=== PATIENT | female | born 1930 | race Caucasian/White ===

== ENCOUNTER 2020-05-24 14:30 | Inpatient (IN) | payer MEDICARE, OTHER ==
[~2020-05-24] VITALS: Ht 152.4 cm; Wt 59.0 kg
[2020-05-24] MEDS ORDERED: LIDOCAINE PATCH 5% TD (14:50)
[2020-05-24] MEDS ORDERED: APIX2.5T PO (14:50)
[2020-05-24] MEDS ORDERED: EZET10TA15 PO (14:50)
[2020-05-24] MEDS ORDERED: CYCL30DR OP (14:50)
[2020-05-24] MEDS ORDERED: DEXL60CA3 PO (14:50)
[2020-05-24] MEDS ORDERED: DIGO125T PO (14:50)
[2020-05-24] MEDS ORDERED: CYAN-51 PO (14:50)
[2020-05-24] MEDS ORDERED: ROSU20TA2 PO (14:50)
[2020-05-24] MEDS ORDERED: AMLO5TAB9 PO (14:50)
[2020-05-24] MEDS ORDERED: ALEN70TA6 PO (14:50)
[2020-05-24] MEDS ORDERED: LISI10TA5 PO (14:50)
[2020-05-24] MEDS ORDERED: ERGO500040 PO (14:50)
[2020-05-24] MEDS ORDERED: CELE200C PO (14:50)
[2020-05-24] MEDS ORDERED: METO-357 PO (14:50)
[2020-05-24] MEDS ORDERED: ONDANSETRON 4 MG/2 ML VIAL IV ONE (15:00)
[2020-05-24] MEDS ORDERED: IV NS 1000 ML 1,000 ML IV ONE (15:00)
[2020-05-24] MEDS ORDERED: MORPHINE SULFATE 2 MG/1 ML DISP.SYRIN IV ONE (15:00)
[2020-05-24] MEDS ORDERED: MORPHINE SULFATE 2 MG/1 ML DISP.SYRIN ONE (15:13)
[2020-05-24] MEDS ORDERED: ONDANSETRON 4 MG/2 ML VIAL ONE (15:14)
[2020-05-24] MEDS ORDERED: DILTIAZEM HCL 25 MG IV IV ONE (15:30)
[2020-05-24 15:42] LABS: BASOPHILS # (AUTO) 0.1 K/uL (0.0-8.0); BASOPHILS % (AUTO) 0.9 % (0.0-2.0); EOSINOPHILS % (AUTO) 0.2 % (0.0-7.0); HEMATOCRIT 33.9 % (31.2-41.9); HEMOGLOBIN 11.4 g/dL (10.9-14.3); LYMPHOCYTES # (AUTO) 1.2 K/uL (20.0-40.0); LYMPHOCYTES % (AUTO) 12.7 % (20.5-51.5); MEAN CORPUSCULAR HEMOGLOBIN 29.4 uug (24.7-32.8); MEAN CORPUSCULAR HGB CONC 34 g/dL (32.3-35.6); MEAN CORPUSCULAR VOLUME 87.2 fL (75.5-95.3); MONOCYTES % (AUTO) 10.4 % (0.0-11.0); NEUTROPHILS % (AUTO) 75.8 % (38.5-71.5); PLATELET COUNT (AUTO) 163 K/uL (179-408); RED BLOOD CELL COUNT(AUTO) 3.89 MIL/uL (3.63-4.92); WHITE BLOOD COUNT (AUTO) 9.2 K/uL (3.8-11.8)
[2020-05-24 15:47] LABS: CREATININE 1.1 mg/dL (0.6-1.3); POTASSIUM 4.1 mmol/L (3.5-5.1)
[2020-05-24 15:52] LABS: BILIRUBIN,DIRECT 0.4 mg/dL (0.0-0.2); BILIRUBIN,TOTAL 0.7 mg/dL (0.2-1.0); TOTAL PROTEIN, SERUM 7.5 g/dL (6.4-8.2)
[2020-05-24 16:04] LABS: THYROID STIMULATING HORMONE 1.259 mIU/mL (0.358-3.740)
[2020-05-24] MEDS ORDERED: DIGOXIN 500 MCG/2 ML AMP IV ONE (16:45)
[2020-05-24] MEDS ORDERED: DIGOXIN 500 MCG/2 ML AMP ONE (16:51)
--- NOTE | 2020-05-24 18:37 | NUR ---
PT WAS EVALUATED BY DR STRANGE. PT WAS TRNASFERED TO TELEMETRY ROOM #[id number]. REPORT WAS GIVEN TO GAS APPLIANCE REPAIRER MANDY.
[2020-05-24 18:40] VITALS: BP 125/51
[2020-05-24] MEDS ORDERED: TEMAZEPAM 15 MG CAPSULE PO PRN (18:45)
[2020-05-24] MEDS ORDERED: ACETAMINOPHEN 325 MG TABLET PO PRN (18:45)
[2020-05-24] MEDS ORDERED: Z GUARD REMEDY PASTE 57 GM TUBE TOP PRN (18:45)
[2020-05-24] MEDS ORDERED: ENOXAPARIN SODIUM 40 MG/0.4 ML DISP.SYRIN SQ SCH (18:45)
--- NOTE | 2020-05-24 18:49 | NUR ---
89 year old female received from er via rney for abdominal pain ,pt is axox3 call light with in reach
[2020-05-24] MEDS: MORPHINE SULFATE 2 MG/1 ML DISP.SYRIN IV PRN (20:05)
[2020-05-24] MEDS: ONDANSETRON 4 MG/2 ML VIAL IV PRN (20:06)
--- NOTE | 2020-05-24 20:15 | NUR ---
RECEIVED PATIENT AWAKE IN BED. A/O X3. SURINAMESE SPEAKING BUT ABLE TO MAKE NEEDS KNOWN. C/O PAIN IN ABDOMEN AND C/O NAUSEA. PATIENT GIVEN MORPHINE 2MG IVP AND ZOFRAN 4MF IVP PER CONSERVATION TECHNICIAN. VS WNL. NO RESP. DISTRESS NOTED. H/L INTACT AND PATENT WITH IVF INFUSING WELL TO RIGHT AC #20 GAUGE. BED ALARM ON. CALL LIGHT IN REACH. WILL CONTINUE TO MONITOR AND ASSESS.
[2020-05-24] MEDS: ATORVASTATIN 40 MG TABLET PO SCH (20:19)
[2020-05-24] MEDS: APIXABAN 5 MG TABLET PO SCH (20:22)
[2020-05-24 20:54] VITALS: BP 93/37
--- NOTE | 2020-05-24 21:30 | NUR ---
PATIENT ASLEEP. NO S/S OF PAIN OR DISCOMFORT. BED ALARM ON. ON TELE SR. CALL LIGHT IN REACH. ALL NEEDS ATTENDED.
--- NOTE | 2020-05-24 23:00 | NUR ---
REPORT GIVEN TO RN FOR ASSIGNMENT CHANGE. ALL NEEDS ATTENDED.
--- NOTE | 2020-05-24 23:00 | NUR ---
SBAR report received from JOSE ELIAS Plunkett for continuity of care.
--- NOTE | 2020-05-24 23:50 | NUR ---
Pt A/O x4. SLOVENIAN SPEAKING, but able to make needs known. Pt denied any pain or discomfort at this time. Pt was asleep upon assessment, but easily aroused. On RA. No SOB or respiratory distress noted or reported. NS infusing @ 75 ml/h. NO infiltration noted at site. Bed alarm on. Call light and belongings within reach. All safety precautions in place. Pt care and monitoring continued.
[2020-05-25] VITALS: BP 111/50
[2020-05-25 04:47] VITALS: BP 115/58
[2020-05-25] MEDS: MAGNESIUM HYDROXIDE 30 ML LIQUID UDC PO PRN (05:01)
--- NOTE | 2020-05-25 05:01 | NUR ---
Pt c/o constipation and moaning. Pt denied any pain at this time, but requests medication for constipation relief. MOM administered per MD PRN order. Please see eMAR. Pt now sitting at edge of bed. All safety precautions in place. Monitoring continued.
--- NOTE | 2020-05-25 06:26 | NUR ---
NO adverse events during shift. Pt still without BM. No distress noted or reported. Pt denied any pain at this time. Pt status unchanged. Pt safety maintained during shift.
[2020-05-25] MEDS: PANTOPRAZOLE SODIUM 40 MG TABLET.DR PO SCH (06:37)
[2020-05-25] MEDS ORDERED: PANTOPRAZOLE SODIUM 40 MG TABLET.DR PO SCH (07:00)
[2020-05-25 07:16] LABS: BASOPHILS % (AUTO) 0.6 % (0.0-2.0); EOSINOPHILS # (AUTO) 0.1 K/uL (0.0-0.7); EOSINOPHILS % (AUTO) 1.8 % (0.0-7.0); HEMATOCRIT 27.9 % (31.2-41.9); HEMOGLOBIN 9.4 g/dL (10.9-14.3); LYMPHOCYTES # (AUTO) 1.1 K/uL (20.0-40.0); LYMPHOCYTES % (AUTO) 17.1 % (20.5-51.5); MEAN CORPUSCULAR HEMOGLOBIN 29.8 uug (24.7-32.8); MEAN CORPUSCULAR HGB CONC 34 g/dL (32.3-35.6); MEAN CORPUSCULAR VOLUME 88.1 fL (75.5-95.3); MONOCYTES # (AUTO) 0.8 K/uL (2.0-10.0); MONOCYTES % (AUTO) 12.8 % (0.0-11.0); NEUTROPHILS # (AUTO) 4.4 K/uL (1.8-8.9); NEUTROPHILS % (AUTO) 67.7 % (38.5-71.5); PLATELET COUNT (AUTO) 134 K/uL (179-408); RED BLOOD CELL COUNT(AUTO) 3.17 MIL/uL (3.63-4.92); WHITE BLOOD COUNT (AUTO) 6.4 K/uL (3.8-11.8)
[2020-05-25 07:34] LABS: THYROID STIMULATING HORMONE 1.363 mIU/mL (0.358-3.740)
[2020-05-25 07:45] LABS: MAGNESIUM 2.2 mg/dL (1.8-2.4)
--- NOTE | 2020-05-25 08:00 | NUR ---
received awake alert speaks South African, having breakfast at this time, call light within reach
[2020-05-25] MEDS ORDERED: BISACODYL 5 MG TABLET.DR PO ONE (08:45)
[2020-05-25] MEDS ORDERED: AMLODIPINE 5 MG TABLET PO SCH (09:00)
[2020-05-25] MEDS ORDERED: LISINOPRIL 10 MG TABLET PO SCH (09:00)
[2020-05-25] MEDS ORDERED: METOPROLOL SUCCINATE XL 50 MG TAB.SR.24H PO SCH (09:00)
[2020-05-25] MEDS ORDERED: POLYVINYL ALCOHOL OPHT DROPS 15 ML BOTTLE OP SCH (09:00)
[2020-05-25] MEDS: CYANOCOBALAMIN 100 MCG TABLET PO SCH (09:24)
[2020-05-25] MEDS: EZETIMIBE 10 MG TABLET PO SCH (09:25)
[2020-05-25] MEDS: CELECOXIB 200 MG CAPSULE PO SCH (09:25)
--- NOTE | 2020-05-25 09:30 | NUR ---
c/o of nausea after breakfast, medicated with Zofran 4mg iv as ordered prn, informed NO Kamini that pt had a bowel movement and dulcolax 2 tabs not given, spoke to son and daughter and explained plan of care and updated on pts' condition- also wanted to talk to OFFICE ENGINEER- informed Suni Suárez
[2020-05-25] MEDS: ONDANSETRON 4 MG/2 ML VIAL IV PRN ×2 (09:36→16:56)
[2020-05-25] MEDS: APIXABAN 5 MG TABLET PO SCH (09:59)
[2020-05-25] MEDS ORDERED: ERGOCALCIFEROL 50,000 UNIT CAPSULE PO SCH (10:30)
--- NOTE | 2020-05-25 10:50 | NUR ---
states nausea subsided, sitting at the edge of bed, seen by Dr Cortes
--- NOTE | 2020-05-25 11:00 | NUR ---
2d echo done at bedside
[2020-05-25] MEDS: POLYVINYL ALCOHOL OPHT DROPS 15 ML BOTTLE EACHEYE SCH ×2 (11:01→16:57)
[2020-05-25] MEDS: COLCHICINE 0.6 MG TABLET PO SCH ×2 (11:07→16:56)
[2020-05-25 11:08] LABS: CREATININE 1.2 mg/dL (0.6-1.3); POTASSIUM 4.2 mmol/L (3.5-5.1)
[2020-05-25] MEDS: LIDOCAINE 5% PATCH TD SCH (11:08)
[2020-05-25] MEDS ORDERED: FUROSEMIDE 20 MG/2 ML VIAL IV ONE (11:30)
[2020-05-25] MEDS: DIGOXIN 125 MCG TABLET PO SCH (12:46)
[2020-05-25 12:53] VITALS: BP 98/43
[2020-05-25 16:17] VITALS: BP 99/38
--- NOTE | 2020-05-25 16:30 | NUR ---
seen by Dr Ponce with order- for CT Abd with and without contrast- kept npo for now, spoke to Lindy (daughter ) and gave consent with so with pt,
--- NOTE | 2020-05-25 17:58 | NUR ---
resting in bed, nausea subsided, no distress noted, all needs attended and met, call light within reach
--- NOTE | 2020-05-25 19:30 | NUR ---
Received patient lying in bed calm and alert. Pt is Kiswahili speaking with some Monegasque. No s/s of acute distress notes at this time. Right AC patent and intact. Pt denies SOB and pain at this time. Bed locked and low, safety measures in place. Will continue to monitor.
[2020-05-25 20:18] VITALS: BP 112/54
[2020-05-25] MEDS ORDERED: IV NORMAL SALINE 250 ML IV ONE (21:00)
[2020-05-25] MEDS ORDERED: IOHEXOL 300MG/ML 100 ML INFUS..BTL ONE (21:00)
[2020-05-25] MEDS ORDERED: SWABABLE VALVE TRANSFER SET EA MC ONE (21:00)
--- NOTE | 2020-05-25 21:02 | NUR ---
Pt off unit for CT Addendum: 05/25/20 at 2139 by MANDO CALIX RN Pt return from CT. No s/s of acute distress. will continue to monitor
[2020-05-25] MEDS: ATORVASTATIN 40 MG TABLET PO SCH (21:48)
[2020-05-26 00:44] VITALS: BP 118/49
[2020-05-26] MEDS: ONDANSETRON 4 MG/2 ML VIAL IV PRN (02:09)
[2020-05-26] MEDS: MORPHINE SULFATE 2 MG/1 ML DISP.SYRIN IV PRN (02:09)
[2020-05-26 05:29] VITALS: BP 95/47
[2020-05-26] MEDS: PANTOPRAZOLE SODIUM 40 MG TABLET.DR PO SCH (06:18)
[2020-05-26 06:45] LABS: BASOPHILS % (AUTO) 0.8 % (0.0-2.0); EOSINOPHILS # (AUTO) 0.1 K/uL (0.0-0.7); EOSINOPHILS % (AUTO) 2.2 % (0.0-7.0); HEMATOCRIT 28.3 % (31.2-41.9); HEMOGLOBIN 9.6 g/dL (10.9-14.3); LYMPHOCYTES # (AUTO) 1.1 K/uL (20.0-40.0); LYMPHOCYTES % (AUTO) 19.9 % (20.5-51.5); MEAN CORPUSCULAR HEMOGLOBIN 29.7 uug (24.7-32.8); MEAN CORPUSCULAR HGB CONC 34 g/dL (32.3-35.6); MEAN CORPUSCULAR VOLUME 87.4 fL (75.5-95.3); MONOCYTES # (AUTO) 0.5 K/uL (2.0-10.0); MONOCYTES % (AUTO) 9.8 % (0.0-11.0); NEUTROPHILS # (AUTO) 3.7 K/uL (1.8-8.9); NEUTROPHILS % (AUTO) 67.3 % (38.5-71.5); PLATELET COUNT (AUTO) 159 K/uL (179-408); RED BLOOD CELL COUNT(AUTO) 3.24 MIL/uL (3.63-4.92); WHITE BLOOD COUNT (AUTO) 5.5 K/uL (3.8-11.8)
--- NOTE | 2020-05-26 06:58 | NUR ---
Pt resting in bed. No complaints of N/V. No s/s of acute distress. Patient slept well through the night. Safety measures in place and will endorse to oncoming nurse.
[2020-05-26 07:00] LABS: CREATININE 1.3 mg/dL (0.6-1.3); POTASSIUM 4.2 mmol/L (3.5-5.1)
--- NOTE | 2020-05-26 07:30 | NUR ---
Received patient laying in bed. No sign of distress noted at this time. Patient denies any pain and complained that has felt sleepy and sedated for the last two days. She request not to receive any medication that with cause her to be drowsy or sleepy. IV on the right AC 18 gauge heplock. Safety precautions are in place with call light and belonging within reach. Will continue to monitor.
[2020-05-26] MEDS ORDERED: FUROSEMIDE 20 MG/2 ML VIAL IV ONE ×2 (08:45→17:00)
[2020-05-26] MEDS: METOPROLOL SUCCINATE XL 25 MG TAB.SR.24H PO SCH (09:00)
[2020-05-26] MEDS ORDERED: METOPROLOL SUCCINATE XL 50 MG TAB.SR.24H PO SCH (09:00)
[2020-05-26] MEDS: POLYVINYL ALCOHOL OPHT DROPS 15 ML BOTTLE EACHEYE SCH ×2 (09:38→17:24)
[2020-05-26] MEDS: EZETIMIBE 10 MG TABLET PO SCH (09:41)
[2020-05-26] MEDS: COLCHICINE 0.6 MG TABLET PO SCH (09:41)
[2020-05-26] MEDS: CELECOXIB 200 MG CAPSULE PO SCH (09:41)
[2020-05-26] MEDS: CYANOCOBALAMIN 100 MCG TABLET PO SCH (09:41)
[2020-05-26] MEDS: LIDOCAINE 5% PATCH TD SCH (09:42)
[2020-05-26 11:08] VITALS: BP 106/39
[2020-05-26] MEDS: DIGOXIN 125 MCG TABLET PO SCH (13:36)
--- NOTE | 2020-05-26 13:47 | NUR ---
Took patient to restroom and she complained of dizziness, took BP 110/43 with a heart rate of 75. Will continue to monitor.
[2020-05-26 15:10] VITALS: BP 129/43
--- NOTE | 2020-05-26 18:13 | NUR ---
Got driver medic Denisse through the driver medic phone to translate in Icelandic for the informed consent for the EGD and the laparoscopic cholecystectomy that is to be done on Wednesday. Forms are signed and in the patients chart. Will endorse this to oncoming nurse
--- NOTE | 2020-05-26 18:58 | NUR ---
Will also endorse to the oncoming nurse to keep patient NPO after midnight.
--- NOTE | 2020-05-26 19:30 | NUR ---
RECEIVED PT AWAKE, ALERT AND ORIENTEDX3. PT IN NO ACUTE DISTRESS. IV INTACT. SAFETY AND COMFORT PROVIDED. WILL CONTINUE TO MONITOR.
[2020-05-26] MEDS: ATORVASTATIN 40 MG TABLET PO SCH (20:16)
[2020-05-26 21:01] VITALS: BP 126/48
[2020-05-27] VITALS (12 sets, daily range): BP systolic 97–153; BP diastolic 46–83
--- NOTE | 2020-05-27 00:37 | NUR ---
PT ASSISTED TO THE RESTROOM AND HEART RATE STARTED TO INCREASE. PT STATING SHE'S IN PAIN.
[2020-05-27] MEDS: MORPHINE SULFATE 2 MG/1 ML DISP.SYRIN IV PRN ×2 (00:38→20:05)
--- NOTE | 2020-05-27 00:38 | NUR ---
MORPHINE PRN GIVEN FOR PAIN. WILL CONTINUE TO MONITOR.
--- NOTE | 2020-05-27 01:21 | NUR ---
PT SUSTAINING INTO AFIB AND DOESN'T CONVERT TO SR. PT BLOOD PRESSURE WITHIN NORMAL LIMIT. WILL CONTINUE TO MONITOR.
--- NOTE | 2020-05-27 01:22 | NUR ---
NOTIFY NATIONAL COVERAGE SPECIALIST DR MEDICAL RESEARCH ASSOCIATE FOR PT WENT INTO RAPID AFIB. ORDERED CARDIZEM 20 MG IV PUSH THEN A DRIP. WILL CONTINUE TO MONITOR.
--- NOTE | 2020-05-27 01:23 | NUR ---
PT TRANSFERRED TO TELE-TD.
[2020-05-27] MEDS ORDERED: DILTIAZEM HCL IV 125 MG in IV NORMAL SALINE 100 ML IV SCH (01:30)
[2020-05-27] MEDS ORDERED: DILTIAZEM HCL 25 MG IV IV ONE (01:30)
--- NOTE | 2020-05-27 01:42 | NUR ---
CARDIZEM 20MG PUSH BOLUS GIVEN. HEART RATE 150. BLOOD PRESSURE 113/61. CALLED SUPPLIER QUALITY THAT I'M GOING TO START PUSHING THE CARDIZEM.
[2020-05-27] MEDS ORDERED: DILTIAZEM HCL 50 MG IV ONE (01:46)
[2020-05-27] MEDS ORDERED: DILTIAZEM HCL 25 MG IV ONE (01:49)
--- NOTE | 2020-05-27 01:49 | NUR ---
AFTER CARDIZEM PUSH BOLUS PT BLOOD PRESSURE WAS 118/49 AND HEART RATE 122. SAFETY AND COMFORT PROVIDED. WILL CONTINUE TO MONITOR.
--- NOTE | 2020-05-27 03:59 | NUR ---
AT 0355H PT CONVERTED BACK TO SINUS RHYTHM. HEART RATE 67. WILL CONTINUE TO MONITOR.
--- NOTE | 2020-05-27 05:08 | NUR ---
CALLED DR. NORBERTO YEPEZ TO NOTIFY REGARDING PT WENT INTO RAPID AFIB AND CONVERTED BACK INTO SR. PT WAS GIVEN CARDIZEM BOLUS AND PT IS ON A DRIP RIGHT NOW. DR. THORNTON ORDERED TO KEEP PT ON NPO. HE WILL CALL THE RELIABILITY MANAGER FOR FURTHER CONSULT.
[2020-05-27 05:39] LABS: *BILIRUBIN,URIN NEGATIVE (NEGATIVE); *COLOR,URINE YELLOW (YELLOW); *KETONES,URINE NEGATIVE (NEGATIVE); *UROBILINOGEN,URINE 0.2 E.U./dl (NORMAL); LEUKOCYTE ESTERASE ,URINE NEGATIVE (NEGATIVE); NITRITE, URINE NEGATIVE (NEGATIVE); UGLUCOSE NEGATIVE (NEGATIVE)
[2020-05-27 05:40] LABS: *BLOOD, URINE TRACE (NEGATIVE); *CLARITY,URINE HAZY (CLEAR)
[2020-05-27 05:46] LABS: BACTERIA,URINE FEW /HPF (NONE SEEN); SQUAMOUS EPITHELIAL CELL,UR FEW /HPF (NONE SEEN)
[2020-05-27 05:47] LABS: MUCUS,URINE FEW /LPF (0-FEW)
[2020-05-27] MEDS: PANTOPRAZOLE SODIUM 40 MG TABLET.DR PO SCH (06:08)
--- NOTE | 2020-05-27 06:38 | NUR ---
HELD CARDIZEM DRIP AT 0517H FOR SUSTAINING HEART RATE 66. PT IN SINUS RHYTHM. . PRESCRIBED MEDICATION GIVEN AND PT TOLERATED IT WELL. PT ON 2L NASAL CANNULA. IV INTACT. SAFETY AND COMFORT PROVIDED. ALL NEEDS ARE MET. WILL ENDORSE TO INCOMING NURSE FOR CONTINUITY OF CARE.
--- NOTE | 2020-05-27 06:56 | NUR ---
OR STAFF CALLED GAVE INFORMATION REGARDING PT CONDITION.
[2020-05-27 07:10] LABS: BASOPHILS # (AUTO) 0.1 K/uL (0.0-8.0); EOSINOPHILS # (AUTO) 0.1 K/uL (0.0-0.7); EOSINOPHILS % (AUTO) 1.8 % (0.0-7.0); HEMATOCRIT 28.9 % (31.2-41.9); HEMOGLOBIN 9.9 g/dL (10.9-14.3); LYMPHOCYTES # (AUTO) 1.2 K/uL (20.0-40.0); LYMPHOCYTES % (AUTO) 20.6 % (20.5-51.5); MEAN CORPUSCULAR HEMOGLOBIN 29.8 uug (24.7-32.8); MEAN CORPUSCULAR HGB CONC 34 g/dL (32.3-35.6); MONOCYTES # (AUTO) 0.6 K/uL (2.0-10.0); MONOCYTES % (AUTO) 10.5 % (0.0-11.0); NEUTROPHILS # (AUTO) 3.8 K/uL (1.8-8.9); NEUTROPHILS % (AUTO) 66.1 % (38.5-71.5); PLATELET COUNT (AUTO) 184 K/uL (179-408); RED BLOOD CELL COUNT(AUTO) 3.32 MIL/uL (3.63-4.92); WHITE BLOOD COUNT (AUTO) 5.8 K/uL (3.8-11.8)
[2020-05-27] MEDS ORDERED: BACITRACIN/POLYMYXIN B OINT 15 GM TUBE ONE (07:11)
[2020-05-27] MEDS ORDERED: BUPIVACAINE/EPI PF 0.25% 30 ML VIAL ONE (07:11)
[2020-05-27] MEDS ORDERED: LIDOCAINE HCL 1% 20 ML VIAL ONE (07:11)
--- NOTE | 2020-05-27 07:30 | NUR ---
Orienting JOSE ELIAS Marcial today. All charting and assessment documentation reviewed by me.
[2020-05-27 07:33] LABS: CREATININE 1.2 mg/dL (0.6-1.3); POTASSIUM 4.3 mmol/L (3.5-5.1)
--- NOTE | 2020-05-27 07:40 | NUR ---
PATIENT PICKED UP BY OR STAFF FOR SCHEDULED EGD AND LAP. MARCELL. PATIENT STABLE AND NAD UPON LEAVING THE FLOOR.
[2020-05-27] MEDS ORDERED: HYDROMORPHONE 2 MG/1 ML DISP.SYRIN ONE (08:01)
[2020-05-27] MEDS ORDERED: ROCURONIUM BROMIDE 50 MG/5 ML VIAL ONE (08:01)
[2020-05-27] MEDS: CELECOXIB 200 MG CAPSULE PO SCH (09:00)
[2020-05-27] MEDS: POLYVINYL ALCOHOL OPHT DROPS 15 ML BOTTLE EACHEYE SCH ×2 (09:00→19:10)
[2020-05-27] MEDS ORDERED: NEOSTIGMINE METHYLSULFATE 10 MG/10 ML VIAL IM ONE (10:09)
[2020-05-27] MEDS ORDERED: CEFAZOLIN 1 G VIAL IM ONE (10:09)
[2020-05-27] MEDS ORDERED: SEVOFLURANE 250 ML BOTTLE IH ONE (10:09)
[2020-05-27] MEDS ORDERED: IV NORMAL SALINE 1000 ML BAG IV ONE (10:09)
[2020-05-27] MEDS ORDERED: PROPOFOL 200 MG/20 ML BOTTLE IV ONE (10:09)
[2020-05-27] MEDS ORDERED: GLYCOPYRROLATE 0.2 MG/ML VIAL IJ ONE (10:09)
[2020-05-27] MEDS ORDERED: KETOROLAC TROMETHAMINE 30 MG INJ IM ONE (10:09)
[2020-05-27] MEDS ORDERED: ETOMIDATE 20 MG/10 ML VIAL IV ONE (10:09)
[2020-05-27] MEDS ORDERED: ONDANSETRON 4 MG/2 ML VIAL IV ONE (10:09)
[2020-05-27] MEDS ORDERED: ALBUTEROL SULFATE 2.5 MG/3 ML NEBU ONE (10:21)
[2020-05-27] MEDS ORDERED: IPRATROPIUM BROMIDE 0.5 MG/2.5 ML NEBU ONE (10:21)
[2020-05-27] MEDS ORDERED: FUROSEMIDE 40 MG/4 ML VIAL IV ONE (11:30)
--- NOTE | 2020-05-27 11:53 | NUR ---
PATIENT RETURNED FROM EGD PROCEDURE AND LAP MARCELL PROCEDURE. FULL SBAR REPORT RECEIVED FROM GLASS MAKEROLGA. NEW ORDERS RECEIVED AND CARRIED OUT.
--- NOTE | 2020-05-27 11:56 | NUR ---
PATIENT SR ON MONITOR, HR 67. PATIENT ON 3L NC, SATURATING WNL. Addendum: 05/27/20 at 1209 by BUSHRA NAVA RN PATIENT NOTED TO STILL BE DROWSY FROM ANESTHESIA. PLACED ON SIMPLE MASK AT 6L, SATURATING WNL.
--- NOTE | 2020-05-27 16:45 | NUR ---
PATIENT AWAKE, ALERT. COMPLAINS OF NAUSEA POST-SURGERY. HELD MEDICATION AND MONITORING PATIENT FOR TOLERANCE OF LIQUIDS.
--- NOTE | 2020-05-27 18:55 | NUR ---
Brought pt down to 2nd floor CCU-3 for transfer.
--- NOTE | 2020-05-27 19:00 | NUR ---
received patient awake , unable to follow command , 5 l nc , gt feeding of osmolite 30 ml , no residual , chaudhry and iv intact Addendum: 05/27/20 at 1958 by SERA MORAN RN wrong patient , wrong entry
--- NOTE | 2020-05-27 19:00 | NUR ---
PATIENT REMAINS NAUSEOUS, BUT IS TOLERATING SIPS OF WATER. NO EPISODES OF EMESIS NOTED. PATIENT ON 5L O2 ON SIMPLE MASK, SATURATION WNL. SR ON MONITOR.
[2020-05-27] MEDS: COLCHICINE 0.6 MG TABLET PO SCH (19:08)
[2020-05-27] MEDS: METOPROLOL SUCCINATE XL 25 MG TAB.SR.24H PO SCH (19:08)
[2020-05-27] MEDS: CYANOCOBALAMIN 100 MCG TABLET PO SCH (19:08)
[2020-05-27] MEDS: LIDOCAINE 5% PATCH TD SCH (19:09)
[2020-05-27] MEDS: EZETIMIBE 10 MG TABLET PO SCH (19:09)
[2020-05-27] MEDS: DIGOXIN 125 MCG TABLET PO SCH (19:09)
--- NOTE | 2020-05-27 19:32 | NUR ---
RECEIVED PT AWAKE,ALERT AND ORIENTEDX3. PT ON SIMPLE MASK AT 5L. PT IN NO ACUTE RESPIRATORY DISTRESS. PT WITH SURGICAL INCISION ON HER ABDOMEN. PT COMPLAIN OF PAIN. BELONGING LIST NOTED. SAFETY AND COMFORT PROVIDED. WILL CONTINUE TO MONITOR.
[2020-05-27] MEDS: AMIODARONE HCL 200 MG TABLET PO SCH (20:00)
[2020-05-27] MEDS: ATORVASTATIN 40 MG TABLET PO SCH (20:00)
[2020-05-27] MEDS: AMITIZA 24 MCG PO SCH (20:01)
--- NOTE | 2020-05-27 21:06 | NUR ---
DR. LUCHO THORNTON CALLED AND ASKED THE CONDITION OF THE PT. DR. THORNTON ORDERED LABWORKS AND SOFT DIET FOR THE PT IN THE MORNING. PT IN NO ACUTE DISTRESS. WILL CONTINUE TO MONITOR.
--- NOTE | 2020-05-27 21:30 | NUR ---
MORPHINE GIVEN AT 2005 FOR PAIN. AFTER AND HOUR PT PAIN SUBSIDED. PT IN NO ACUTE DISTRESS. WILL CONTINUE TO MONITOR.
--- NOTE | 2020-05-27 22:15 | NUR ---
DAUGHTER OF THE PT CALLED AND ASKED ABOUT THE CONDITION OF THE PT.TOLD HER PT STABLE. VS WNL. HEART RYTHM IS SR. PT IN NO ACUTE DISTRESS.
[2020-05-28] VITALS (9 sets, daily range): BP systolic 95–147; BP diastolic 42–68
--- NOTE | 2020-05-28 01:35 | NUR ---
PT MOANING AND OFFERED HER PAIN MEDICATION. PT REFUSED. VITAL SIGNS STABLE. WILL CONTINUE TO MONITOR.
[2020-05-28 05:12] LABS: BASOPHILS # (AUTO) 0.1 K/uL (0.0-8.0); BASOPHILS % (AUTO) 1.3 % (0.0-2.0); EOSINOPHILS # (AUTO) 0.1 K/uL (0.0-0.7); HEMATOCRIT 28.1 % (31.2-41.9); HEMOGLOBIN 9.6 g/dL (10.9-14.3); LYMPHOCYTES % (AUTO) 14.4 % (20.5-51.5); MEAN CORPUSCULAR HEMOGLOBIN 29.9 uug (24.7-32.8); MEAN CORPUSCULAR HGB CONC 34 g/dL (32.3-35.6); MEAN CORPUSCULAR VOLUME 87.1 fL (75.5-95.3); MONOCYTES # (AUTO) 0.4 K/uL (2.0-10.0); MONOCYTES % (AUTO) 6.5 % (0.0-11.0); NEUTROPHILS # (AUTO) 5.2 K/uL (1.8-8.9); NEUTROPHILS % (AUTO) 75.8 % (38.5-71.5); PLATELET COUNT (AUTO) 184 K/uL (179-408); RED BLOOD CELL COUNT(AUTO) 3.22 MIL/uL (3.63-4.92); WHITE BLOOD COUNT (AUTO) 6.9 K/uL (3.8-11.8)
[2020-05-28 05:23] LABS: BILIRUBIN,TOTAL 0.5 mg/dL (0.2-1.0); CREATININE 1.2 mg/dL (0.6-1.3); MAGNESIUM 2.3 mg/dL (1.8-2.4); PHOSPHOROUS 3.7 mg/dL (2.5-4.9); POTASSIUM 4.3 mmol/L (3.5-5.1); TOTAL PROTEIN, SERUM 6.4 g/dL (6.4-8.2)
[2020-05-28] MEDS: PANTOPRAZOLE SODIUM 40 MG TABLET.DR PO SCH (06:06)
--- NOTE | 2020-05-28 06:18 | NUR ---
PT SLEPT INTERMITTENTLY. PT IN NO ACUTE DISTRESS. PT ON SINUS RHYTHM. PT ON 4L NASAL CANNULA. IV INTACT ON RIGHT HAND 22G. PT CAN MAKE HER NEEDS KNOWN. PRESCRIBED MEDICATION GIVEN AND PT TOLERATED IT WELL. ALL NEEDS ARE MET. WILL ENDORSE TO INCOMING NURSE FOR CONTINUITY OF CARE.
--- NOTE | 2020-05-28 07:47 | NUR ---
Dr. Cortes here to see pt. New orders received.
[2020-05-28] MEDS ORDERED: FUROSEMIDE 20 MG/2 ML VIAL IV ONE ×2 (08:00→15:00)
[2020-05-28] MEDS ORDERED: LACTULOSE 20 G/30 ML LIQUID UDC PO ONE (08:00)
[2020-05-28] MEDS: AMIODARONE HCL 200 MG TABLET PO SCH ×2 (08:14→20:16)
[2020-05-28] MEDS: AMITIZA 24 MCG PO SCH ×2 (08:14→20:16)
[2020-05-28] MEDS: CELECOXIB 200 MG CAPSULE PO SCH ×2 (08:15→09:19)
[2020-05-28] MEDS: POLYVINYL ALCOHOL OPHT DROPS 15 ML BOTTLE EACHEYE SCH ×2 (08:16→17:25)
--- NOTE | 2020-05-28 08:55 | NUR ---
Dr. Cortes here to see pt. Full report given. New orders received. MD pereira to downgrade to telemetry.
[2020-05-28] MEDS: LIDOCAINE 5% PATCH TD SCH (09:00)
[2020-05-28] MEDS: COLCHICINE 0.6 MG TABLET PO SCH (09:20)
[2020-05-28] MEDS: EZETIMIBE 10 MG TABLET PO SCH (09:20)
[2020-05-28] MEDS: METOPROLOL SUCCINATE XL 25 MG TAB.SR.24H PO SCH (09:20)
[2020-05-28] MEDS: CYANOCOBALAMIN 100 MCG TABLET PO SCH (09:20)
[2020-05-28] MEDS: APIXABAN 5 MG TABLET PO SCH ×2 (09:21→17:33)
--- NOTE | 2020-05-28 11:44 | NUR ---
VICKY Lozano here to see pt. Full report given. DIGITIZER okay to downgrade to telemetry.
--- NOTE | 2020-05-28 14:09 | NUR ---
Spoke with Dr. Ponce. Full report given over telephone. No new orders received.
[2020-05-28] MEDS: DIGOXIN 125 MCG TABLET PO SCH (14:25)
--- NOTE | 2020-05-28 17:14 | NUR ---
Pt transferred to [facility] via wheelchair. Pt stable and nad noted upon transfer.
[2020-05-28] MEDS: KETOROLAC TROMETHAMINE 15 MG INJ IVP PRN (19:29)
[2020-05-28] MEDS: ATORVASTATIN 40 MG TABLET PO SCH (20:16)
[2020-05-29 00:21] VITALS: BP 135/52
[2020-05-29 04:00] VITALS: BP 130/54
--- NOTE | 2020-05-29 05:52 | NUR ---
Pt rested well in between care; c/o pain x1, toradol givenx1 with good results; incision sites C/D/I; hypoactive bowel sounds; repositioned q2h; continue to monitor; continue plan of care.
[2020-05-29 05:59] LABS: BASOPHILS # (AUTO) 0.1 K/uL (0.0-8.0); BASOPHILS % (AUTO) 1.2 % (0.0-2.0); EOSINOPHILS # (AUTO) 0.2 K/uL (0.0-0.7); EOSINOPHILS % (AUTO) 2.5 % (0.0-7.0); HEMOGLOBIN 10.6 g/dL (10.9-14.3); LYMPHOCYTES # (AUTO) 1.1 K/uL (20.0-40.0); LYMPHOCYTES % (AUTO) 15.8 % (20.5-51.5); MEAN CORPUSCULAR HEMOGLOBIN 29.7 uug (24.7-32.8); MEAN CORPUSCULAR HGB CONC 34 g/dL (32.3-35.6); MEAN CORPUSCULAR VOLUME 86.8 fL (75.5-95.3); MONOCYTES # (AUTO) 0.5 K/uL (2.0-10.0); MONOCYTES % (AUTO) 7.3 % (0.0-11.0); NEUTROPHILS # (AUTO) 5.1 K/uL (1.8-8.9); NEUTROPHILS % (AUTO) 73.2 % (38.5-71.5); PLATELET COUNT (AUTO) 202 K/uL (179-408); RED BLOOD CELL COUNT(AUTO) 3.57 MIL/uL (3.63-4.92)
[2020-05-29] MEDS: PANTOPRAZOLE SODIUM 40 MG TABLET.DR PO SCH (06:11)
[2020-05-29 06:16] LABS: MAGNESIUM 2.5 mg/dL (1.8-2.4); PHOSPHOROUS 3.2 mg/dL (2.5-4.9); POTASSIUM 3.8 mmol/L (3.5-5.1)
--- NOTE | 2020-05-29 08:00 | NUR ---
AWAKE ALERT AND RESTING COMFORTABLY IN BED, C/O BEARABLE PAIN OVER ABDOMINAL INCISION. OBSERVED. STILL ON 3L O2 SATURATING 95%. WILL FOLLOW-UP X-RAY REPORT. SR/ST ON MONITOR
[2020-05-29] MEDS: POLYVINYL ALCOHOL OPHT DROPS 15 ML BOTTLE EACHEYE SCH ×2 (08:55→16:50)
[2020-05-29] MEDS: CELECOXIB 200 MG CAPSULE PO SCH (08:55)
[2020-05-29] MEDS: COLCHICINE 0.6 MG TABLET PO SCH (08:55)
[2020-05-29] MEDS: LIDOCAINE 5% PATCH TD SCH (08:55)
[2020-05-29] MEDS: AMIODARONE HCL 200 MG TABLET PO SCH ×2 (08:56→20:40)
[2020-05-29] MEDS: AMITIZA 24 MCG PO SCH ×2 (08:57→20:40)
[2020-05-29] MEDS: METOPROLOL SUCCINATE XL 25 MG TAB.SR.24H PO SCH (08:57)
[2020-05-29] MEDS: EZETIMIBE 10 MG TABLET PO SCH (08:58)
[2020-05-29] MEDS: CYANOCOBALAMIN 100 MCG TABLET PO SCH (08:58)
[2020-05-29] MEDS: APIXABAN 5 MG TABLET PO SCH ×2 (08:59→16:52)
[2020-05-29 09:07] VITALS: BP 139/49
[2020-05-29] MEDS ORDERED: FUROSEMIDE 40 MG/4 ML VIAL IV ONE ×2 (11:00→17:00)
[2020-05-29] MEDS: KETOROLAC TROMETHAMINE 15 MG INJ IVP PRN (11:24)
--- NOTE | 2020-05-29 11:24 | NUR ---
MEDICATED WITH TORADOL FOR INCISIONAL WOUND, OBSERVED
--- NOTE | 2020-05-29 11:45 | NUR ---
UP ON CHAIR PER PATIENT REQUEST AND ABLE TO EAT LUNCH FAIRLY. CLOSELY MONITORED
[2020-05-29 11:53] VITALS: BP 128/51
[2020-05-29] MEDS ORDERED: POTASSIUM CHLORIDE 20 MEQ POWDER PACKET PO ONE (12:00)
[2020-05-29] MEDS: DIGOXIN 125 MCG TABLET PO SCH (12:32)
--- NOTE | 2020-05-29 13:00 | NUR ---
SEEN BY DR DONALD AND Art JOYNER FOR FOLLOW-UP, NOTED RESULTS OF CXR. SEE NOTES
[2020-05-29] MEDS ORDERED: MAGNESIUM HYDROXIDE 30 ML LIQUID UDC PO PRN (13:45)
--- NOTE | 2020-05-29 15:39 | NUR ---
BACK TO BED WITHOUT ANY C/O OF DIZZINESS OR SOB. TOLERATED SITTING UP OR CHAIR X3 HOURS
[2020-05-29 15:46] VITALS: BP 132/49
--- NOTE | 2020-05-29 17:00 | NUR ---
SEEN BY DR THORNTON FOR FOLLOW-UP POST-OP [facility] FA[facility] DAY 1, NO NEW ORDERS BUT TO ENCOURAGED AMBULATION TOLERATED. PATIENT INCONTINENT OF URINE X3, POST VOID RESIDUAL OF 101 MLS. PATIENT AFEBRILE. PLAN DC IN AM IF MEDICALLY STABLE
[2020-05-29 20:15] VITALS: BP 130/54
[2020-05-29] MEDS: ATORVASTATIN 40 MG TABLET PO SCH (20:40)
[2020-05-29] MEDS: DOCUSATE SODIUM 100 MG CAPSULE PO SCH (20:40)
[2020-05-29] MEDS: HYDROCODONE/APAP 5-325MG TABLET PO PRN (20:47)
[2020-05-30] VITALS (7 sets, daily range): BP systolic 124–140; BP diastolic 49–84
[2020-05-30 06:22] LABS: BASOPHILS # (AUTO) 0.1 K/uL (0.0-8.0); BASOPHILS % (AUTO) 1.3 % (0.0-2.0); EOSINOPHILS # (AUTO) 0.2 K/uL (0.0-0.7); EOSINOPHILS % (AUTO) 3.3 % (0.0-7.0); HEMATOCRIT 32.3 % (31.2-41.9); HEMOGLOBIN 10.9 g/dL (10.9-14.3); LYMPHOCYTES # (AUTO) 1.4 K/uL (20.0-40.0); LYMPHOCYTES % (AUTO) 19.3 % (20.5-51.5); MEAN CORPUSCULAR HEMOGLOBIN 29.2 uug (24.7-32.8); MEAN CORPUSCULAR HGB CONC 34 g/dL (32.3-35.6); MEAN CORPUSCULAR VOLUME 86.5 fL (75.5-95.3); MONOCYTES # (AUTO) 0.5 K/uL (2.0-10.0); MONOCYTES % (AUTO) 6.8 % (0.0-11.0); NEUTROPHILS # (AUTO) 5.1 K/uL (1.8-8.9); NEUTROPHILS % (AUTO) 69.3 % (38.5-71.5); PLATELET COUNT (AUTO) 207 K/uL (179-408); RED BLOOD CELL COUNT(AUTO) 3.73 MIL/uL (3.63-4.92); WHITE BLOOD COUNT (AUTO) 7.4 K/uL (3.8-11.8)
[2020-05-30 06:41] LABS: CARBON DIOXIDE 29 mmol/L (21-32); CHLORIDE 102 mmol/L (98-107); CREATININE 1.4 mg/dL (0.6-1.3); GLUCOSE 93 mg/dL (74-106); MAGNESIUM 2.3 mg/dL (1.8-2.4); POTASSIUM 4.3 mmol/L (3.5-5.1); UREA NITROGEN, BLOOD 30 mg/dL (7-18)
[2020-05-30] MEDS: PANTOPRAZOLE SODIUM 40 MG TABLET.DR PO SCH (06:41)
--- NOTE | 2020-05-30 07:40 | NUR ---
Patient resting. no complaint of pain and no signs of distress. on 2L of nasal canula. no signs of shortness of breath. will continue to monitor.
[2020-05-30] MEDS: CYANOCOBALAMIN 100 MCG TABLET PO SCH (08:20)
[2020-05-30] MEDS: COLCHICINE 0.6 MG TABLET PO SCH (08:20)
[2020-05-30] MEDS: AMIODARONE HCL 200 MG TABLET PO SCH ×2 (08:24→20:26)
[2020-05-30] MEDS: METOPROLOL SUCCINATE XL 25 MG TAB.SR.24H PO SCH (08:24)
[2020-05-30] MEDS: POLYVINYL ALCOHOL OPHT DROPS 15 ML BOTTLE EACHEYE SCH ×2 (08:25→16:25)
[2020-05-30] MEDS: EZETIMIBE 10 MG TABLET PO SCH (08:32)
[2020-05-30] MEDS: CELECOXIB 200 MG CAPSULE PO SCH (08:53)
[2020-05-30] MEDS: LIDOCAINE 5% PATCH TD SCH (08:53)
[2020-05-30] MEDS: APIXABAN 5 MG TABLET PO SCH ×2 (08:58→16:25)
[2020-05-30] MEDS: AMITIZA 24 MCG PO SCH ×2 (09:33→20:26)
[2020-05-30] MEDS: ONDANSETRON 4 MG/2 ML VIAL IV PRN (10:20)
[2020-05-30] MEDS: DIGOXIN 125 MCG TABLET PO SCH (13:11)
[2020-05-30] MEDS: HYDROCODONE/APAP 5-325MG TABLET PO PRN (13:22)
[2020-05-30] MEDS ORDERED: FUROSEMIDE 20 MG/2 ML VIAL IV ONE (14:00)
--- NOTE | 2020-05-30 18:25 | NUR ---
Pt is awake with no signs of distress or pain. Has had stomach discomfort/nausea, given PRN medication for it (Zofran) and it helped. Hasn't had much of an appetite during stay at hospital and even prior to admission. On 2L O2 via nasal canula and has been sporadically using the incentive spirometer - was educated on importance of using it more. No reports of pain but stomach discomfort still persists. Was given Maalox at 1830 to help with stomach discomfort. Will continue to monitor.
[2020-05-30] MEDS: MAG HYDROX/AL HYDROX/SIMETH 30 ML LIQUID UDC PO PRN (18:27)
[2020-05-30] MEDS: MAGNESIUM HYDROXIDE 30 ML LIQUID UDC PO PRN (18:27)
--- NOTE | 2020-05-30 20:00 | NUR ---
RECEIVED PATIENT AWAKE IN BED. A/O X4. GRENADIAN SPEAKING BUT ABLE TO MAKE NEEDS KNOWN. DENIES PAIN OR DISCOMFORT. NO RESP. DISTRESS NOTED. ON O2 2L NC SATING WELL. VSS. ON TELE SR. CALL LIGHT IN REACH. ALL NEEDS ATTENDED. WILL CONTINUE TO MONITOR AND ASSESS.
[2020-05-30] MEDS: ATORVASTATIN 40 MG TABLET PO SCH (20:25)
[2020-05-30] MEDS: DOCUSATE SODIUM 100 MG CAPSULE PO SCH (20:25)
[2020-05-31 00:03] VITALS: BP 129/54
[2020-05-31 04:06] VITALS: BP 132/47
[2020-05-31 06:06] LABS: BASOPHILS # (AUTO) 0.1 K/uL (0.0-8.0); BASOPHILS % (AUTO) 1.2 % (0.0-2.0); EOSINOPHILS # (AUTO) 0.2 K/uL (0.0-0.7); EOSINOPHILS % (AUTO) 3.5 % (0.0-7.0); HEMATOCRIT 32.8 % (31.2-41.9); HEMOGLOBIN 11.1 g/dL (10.9-14.3); LYMPHOCYTES # (AUTO) 1.2 K/uL (20.0-40.0); LYMPHOCYTES % (AUTO) 18.1 % (20.5-51.5); MEAN CORPUSCULAR HEMOGLOBIN 29.2 uug (24.7-32.8); MEAN CORPUSCULAR HGB CONC 34 g/dL (32.3-35.6); MEAN CORPUSCULAR VOLUME 86.6 fL (75.5-95.3); MONOCYTES # (AUTO) 0.4 K/uL (2.0-10.0); MONOCYTES % (AUTO) 6.6 % (0.0-11.0); NEUTROPHILS # (AUTO) 4.8 K/uL (1.8-8.9); NEUTROPHILS % (AUTO) 70.6 % (38.5-71.5); PLATELET COUNT (AUTO) 196 K/uL (179-408); RED BLOOD CELL COUNT(AUTO) 3.79 MIL/uL (3.63-4.92); WHITE BLOOD COUNT (AUTO) 6.8 K/uL (3.8-11.8)
[2020-05-31] MEDS: PANTOPRAZOLE SODIUM 40 MG TABLET.DR PO SCH (06:26)
[2020-05-31 06:38] LABS: CARBON DIOXIDE 30 mmol/L (21-32); CHLORIDE 100 mmol/L (98-107); CREATININE 1.4 mg/dL (0.6-1.3); GLUCOSE 81 mg/dL (74-106); MAGNESIUM 2.3 mg/dL (1.8-2.4); PHOSPHOROUS 4.5 mg/dL (2.5-4.9); POTASSIUM 4.3 mmol/L (3.5-5.1); UREA NITROGEN, BLOOD 40 mg/dL (7-18)
--- NOTE | 2020-05-31 06:56 | NUR ---
PATIENT ON TELE SR. SLEPT WELL. CALL LIGHT IN REACH. ALL NEEDS ATTENDED. WILL CONTINUE TO MONITOR AND ASSESS.
--- NOTE | 2020-05-31 08:00 | NUR ---
Awake, alert, oriented x 4. East Timorese speaking. On moderate high back rest. Lap site x 3 with dressing dry and intact.
[2020-05-31 08:35] VITALS: BP 129/52
[2020-05-31] MEDS: POLYVINYL ALCOHOL OPHT DROPS 15 ML BOTTLE EACHEYE SCH ×2 (09:00→09:38)
[2020-05-31] MEDS ORDERED: FUROSEMIDE 20 MG TABLET PO SCH (09:00)
[2020-05-31] MEDS: EZETIMIBE 10 MG TABLET PO SCH (09:35)
[2020-05-31] MEDS: CYANOCOBALAMIN 100 MCG TABLET PO SCH (09:35)
[2020-05-31] MEDS: COLCHICINE 0.6 MG TABLET PO SCH (09:35)
[2020-05-31] MEDS: CELECOXIB 200 MG CAPSULE PO SCH (09:36)
[2020-05-31] MEDS: METOPROLOL SUCCINATE XL 25 MG TAB.SR.24H PO SCH (09:36)
[2020-05-31] MEDS: APIXABAN 5 MG TABLET PO SCH (09:37)
[2020-05-31] MEDS: AMITIZA 24 MCG PO SCH (09:38)
[2020-05-31] MEDS: LIDOCAINE 5% PATCH TD SCH (09:39)
[2020-05-31] MEDS ORDERED: METO-356 PO (10:29)
[2020-05-31] MEDS ORDERED: FURO-152 PO (10:29)
[2020-05-31] MEDS ORDERED: Colchicine PO (10:29)
[2020-05-31] MEDS: DIGOXIN 125 MCG TABLET PO SCH (12:57)
[2020-05-31] MEDS: MAG HYDROX/AL HYDROX/SIMETH 30 ML LIQUID UDC PO PRN (13:04)
--- NOTE | 2020-05-31 14:00 | NUR ---
With discharge order to home. Saline lock removed. DC instruction given to daughter over the phone. Prescription called to pharmacy
[2020-05-31 15:02] VITALS: BP 144/44
--- NOTE | 2020-05-31 16:00 | NUR ---
Went home per wheelchair in fair condition, not in distress, afebrile. Picked up by daughter.
== END 2020-05-31 15:30 | disposition home or self-care (01) | DRG 981 ==
LOC: ER 14:30 → TELE3 18:16 → TELE-TD3 05-27 01:25 → CCU 05-27 19:27 → TELE3 05-28 17:37
PROVIDERS: ADMIT Nurse Practitioner Acute Care; ATTEND Registered Nurse
PROC: 0DB78ZX Excision of Stomach, Pylorus, Via Natural or Artificial Opening Endoscopic, Diagnostic (ICD-10-PCS; principal; 2020-05-27)
PROC: 0DNU4ZZ Release Omentum, Percutaneous Endoscopic Approach (ICD-10-PCS; 2020-05-27)
PROC: 0FT44ZZ Resection of Gallbladder, Percutaneous Endoscopic Approach (ICD-10-PCS; 2020-05-27)
DX: I48.0 Paroxysmal atrial fibrillation (principal); I50.31 Acute diastolic (congestive) heart failure; K80.10 Calculus of gallbladder with chronic cholecystitis without obstruction; E44.0 Moderate protein-calorie malnutrition; E87.1 Hypo-osmolality and hyponatremia; I31.9 Disease of pericardium, unspecified; J98.11 Atelectasis; I11.0 Hypertensive heart disease with heart failure; K29.70 Gastritis, unspecified, without bleeding; K44.9 Diaphragmatic hernia without obstruction or gangrene; K66.0 Peritoneal adhesions (postprocedural) (postinfection); E88.09 Other disorders of plasma-protein metabolism, not elsewhere classified; M19.90 Unspecified osteoarthritis, unspecified site; Z79.01 Long term (current) use of anticoagulants; D69.59 Other secondary thrombocytopenia; R73.9 Hyperglycemia, unspecified; R74.01 Elevation of levels of liver transaminase levels; K29.80 Duodenitis without bleeding; I65.29 Occlusion and stenosis of unspecified carotid artery
CPT/HCPCS: 36415; 70030-TC; 71045; 83690; 83735; 84100; 84443; 85025; 85651; 85730; 86140; 87086; 88313-TC; 88342; 93005; 93307; 94664; A4217; A4663; G0378; J0690; J1160; J1170; J1885; J1940; J2270; J2405; J2710; J3490; J3590; J7030; J7050; Q9967